=== PATIENT | male | born 1965 | race African-American/Black ===

== ENCOUNTER 2016-12-13 07:50 | Day surgery (SDC) | payer OTHER ==
[2016-12-13] MEDS ORDERED: NS 500 ML IV ONE (09:26)
[2016-12-13] MEDS ORDERED: MIDAZOLAM 2 MG/2 ML VIAL ONE (09:35)
[2016-12-13] MEDS ORDERED: PROPOFOL/EMULSION 500 MG/50 ML BOTTLE IV ONE (09:41)
[2016-12-13] MEDS ORDERED: fentaNYL 100 MCG/2 ML INJ ONE (09:41)
[2016-12-13] MEDS ORDERED: KETAMINE 100 MG/10 ML SYR IVP ONE (09:42)
[2016-12-13] MEDS ORDERED: LIDOCAINE 2% 5 ML SDV ONE (09:49)
--- NOTE | 2016-12-13 11:04 | GPN ---
PREPROCEDURE DIAGNOSIS: Need for screening colonoscopy. POSTPROCEDURE DIAGNOSIS: Poor preparation, colonoscopy to the cecum. MEDICATIONS: Monitored anesthesia care. INDICATIONS: The patient is a 51-year-old gentleman with a history of end-stage chronic kidney dise ase secondary to hypertension. He is in the process of being listed for a kidney transplantation pa micaela. He is due for a screening colonoscopy which is also necessary for listing. The risks and be nefits of the procedure were discussed with the patient. Consent obtained. Risks include, but not limited to, bleeding, perforation, risks related to sedation. The patient is ASA class 3. DESCRIPTION OF PROCEDURE: The adult colonoscope was advanced into the cecum. There was liquid and solid stool throughout the colon, particularly in the cecum and ascending colon. The base of the ce cum could not be completely visualized. Could not intubate the terminal ilium secondary to stool an d fibrous food. Approximately 40% of the colon wall could not be visualized. The retroflexed views in the rectum were normal. IMPRESSION: Poor colonoscopy prep, inability to clear the colon of polyps. RECOMMENDATIONS: 1. Discharged to home with escort. 2. Advance diet as tolerated. 3. Repeat screening colonoscopy with 2 day GoLYTELY prep. Thank you for allowing me to participate in the care of your patient. Please do not hesitate to kai mckeon with questions. /[id number]/MODL
== END 2016-12-13 11:30 | disposition home or self-care (01) ==
LOC: FSGY 07:50
PROVIDERS: ATTEND Internal Medicine Gastroenterology
PROC: 0WJP8ZZ Inspection of Gastrointestinal Tract, Via Natural or Artificial Opening Endoscopic Approach (ICD-10-PCS; principal; 2016-12-13 09:15)
DX: Z12.31 Encounter for screening mammogram for malignant neoplasm of breast (principal); Z76.82 Awaiting organ transplant status; N18.4 Chronic kidney disease, stage 4 (severe); G47.33 Obstructive sleep apnea (adult) (pediatric); I12.9 Hypertensive chronic kidney disease with stage 1 through stage 4 chronic kidney disease, or unspecified chronic kidney disease; E66.9 Obesity, unspecified; Z68.41 Body mass index [BMI] 40.0-44.9, adult
CPT/HCPCS: J2250; J2704; J3010

== ENCOUNTER 2017-01-20 06:06 | Day surgery (SDC) | payer OTHER ==
[2017-01-20] MEDS ORDERED: LIDOCAINE 1% 5 ML SDV ID PRN (07:08)
[2017-01-20] MEDS ORDERED: LR 1,000 ML IV ONE (07:08)
[2017-01-20 07:18] LABS: ANION GAP 13 mEq/L (8-16); CARBON DIOXIDE 25 mEq/l (22-31); CHLORIDE 104 mEq/L (97-110); POTASSIUM 4.3 mEq/L (3.5-5.2); SODIUM 142 mEq/L (134-144)
[2017-01-20] MEDS ORDERED: PROPOFOL 200 MG/20 ML VIAL ONE ×2 (07:51)
--- NOTE | 2017-01-20 09:15 | GPN ---
[f rep st] PROCEDURE NOTE PREPROCEDURE DIAGNOSIS: Need for screening colonoscopy. POSTPROCEDURE DIAGNOSIS: Colonoscopy with polyp removal. PROCEDURE: Colonoscopy with snare. MEDICATIONS: Monitored anesthesia care. INDICATIONS: The patient is a 51-year-old gentleman with end-stage kidney disease secondary to hype rtension who is being evaluated for a kidney transplant listing. He had a prior colonoscopy which s howed inadequate prep/poor prep. He is here for repeat colonoscopy for screening purposes and pre t ransplant workup. The risks and benefits of the procedure were discussed with the patient and conse nt obtained. The risks include, but not limited to, bleeding, perforation, and risk related to faustino tion. The patient is ASA class 3. PROCEDURE IN DETAIL: The end-viewing endoscope was inserted into the terminal ileum which appeared normal. The appendiceal orifice, cecum, ileocecal valve, ascending colon, hepatic flexure appeared normal. There was a 4 mm polyp in the transverse colon, which was removed using cold snare polypect lilo technique and sent to pathology. The splenic flexure, descending colon, sigmoid colon, and rect um were normal. Retroflexed views in the rectum were normal. IMPRESSION: Small transverse colon polyp removed using cold snare polypectomy technique and sent to pathology. RECOMMENDATIONS: 1. Discharged home with escort. 2. Advance diet as tolerated to a renal diet. 3. Continue current medications. 4. Follow up pathology which will be available within 10 days. 5. Repeat colonoscopy on pathology of the polyp. If the polyp is found to be adenomatous, repeat c olonoscopy in 5 years is recommended. Thank you for allowing me to participate in the care of your patient. Please do not hesitate to kai mckeon with questions. /[id number]/MODL
== END 2017-01-20 10:00 | disposition home or self-care (01) ==
LOC: FSGY 06:06
PROVIDERS: ATTEND Internal Medicine Gastroenterology
PROC: 0DBL8ZX Excision of Transverse Colon, Via Natural or Artificial Opening Endoscopic, Diagnostic (ICD-10-PCS; principal; 2017-01-20 08:15)
DX: D12.3 Benign neoplasm of transverse colon (principal); Z86.010 Personal history of colon polyps; Z83.71 Family history of colonic polyps; I12.0 Hypertensive chronic kidney disease with stage 5 chronic kidney disease or end stage renal disease; N18.6 End stage renal disease; G47.33 Obstructive sleep apnea (adult) (pediatric); Z88.1 Allergy status to other antibiotic agents
CPT/HCPCS: J2704

== ENCOUNTER → 2018-06-06 | Outpatient (CLI) | payer OTHER | LOC: FIMAGING 11:05 | PROVIDERS: ATTEND Internal Medicine Nephrology | DX: N18.6 End stage renal disease (principal) ==